=== PATIENT | female | born 1950 | race Caucasian/White ===

== ENCOUNTER 2018-07-10 14:06 | Outpatient (REF) | payer MEDICARE, SELFPAY ==
[2018-07-10 15:11] LABS: COMMENT (LAB VIEW ONLY) 20.25 mg/dL; Microalb ug/mg Crea 8.9 ug/mg Cr
== END 2018-07-10 14:26 ==
LOC: NCHCN 14:06
PROVIDERS: PCP Nurse Practitioner; Visit Provider Nurse Practitioner
DX: E11.9 Type 2 diabetes mellitus without complications (principal)
CPT/HCPCS: 82043; 82570

== ENCOUNTER → 2018-08-19 13:54 | Outpatient (BNVA) | payer MEDICARE, OTHER, SELFPAY | PROVIDERS: PCP Nurse Practitioner; Visit Provider Psychiatry & Neurology Neurology | DX: I63.311 Cerebral infarction due to thrombosis of right middle cerebral artery (principal); E34.8 Other specified endocrine disorders; I10 Essential (primary) hypertension; E11.9 Type 2 diabetes mellitus without complications; Z79.84 Long term (current) use of oral hypoglycemic drugs | CPT/HCPCS: 99214 ==

== ENCOUNTER 2019-01-15 10:39 | Outpatient (CLI) | payer MEDICARE, OTHER, SELFPAY ==
--- NOTE | 2019-01-15 10:32 | DI.RAD_ITS ---
SYMPTOMS/DIAGNOSIS: RT ANKLE PAIN RIGHT FOOT: Three views were obtained. There are osteophytes at the sites of attachment of the plantar fascia and Achilles tendon on the calcaneus. There are mild degenerative changes of the mid foot and forefoot joints. Most prominent degenerative changes are at the calcaneal cuboid joint and talonavicular joint.
== END 2019-01-15 10:59 ==
PROVIDERS: PCP Nurse Practitioner; Referring Provider Nurse Practitioner; Visit Provider Orthopaedic Surgery
DX: M25.571 Pain in right ankle and joints of right foot (principal); M19.071 Primary osteoarthritis, right ankle and foot; M76.821 Posterior tibial tendinitis, right leg
CPT/HCPCS: 99204; 99214; 73630; L1902

== ENCOUNTER 2021-04-17 10:53 | Outpatient (CLI) | payer MEDICARE, OTHER, SELFPAY ==
--- NOTE | 2021-04-17 09:40 | DI.RAD_ITS ---
Exam(s) XR HAND RT COMPLETE EXAM: XR HAND RT COMPLETE CLINICAL HISTORY: ACUTE RT RING FINGER SWELLING, LIMITED ROM, PAIN, M79.89-HAND SWELLING. TECHNIQUE: 2D digital imaging was performed. COMPARISON: No exams were available for comparison FINDINGS: There is no evidence of acute fracture nor dislocation. No erosions seen. However, there is signifi cant degenerative changes in the distal interphalangeal joints of all the fingers and advanced degene rative changes in the proximal interphalangeal joint of the 4th and 5th fingers with lesser amount of degenerative change in the PIP joints of the 2nd and 3rd fingers. There are moderate degenerative c hanges in the interphalangeal joint of the thumb. Advanced degenerative changes are noted at the 1st carpometacarpal joint PICC, this being the articulation between the thumb metacarpal and trapezium. IMPRESSION: DATA REPOSITORY: RADIATION DOSE DELIVERED:
== END 2021-04-17 11:13 ==
PROVIDERS: PCP Nurse Practitioner; Visit Provider Nurse Practitioner
DX: R22.31 Localized swelling, mass and lump, right upper limb (principal); M79.641 Pain in right hand
CPT/HCPCS: 73130

== ENCOUNTER 2021-11-27 11:53 | Outpatient (REF) | payer MEDICARE, OTHER, SELFPAY ==
[2021-11-27 15:33] LABS: COMMENT (LAB VIEW ONLY) 13.75 mg/dL; Microalb ug/mg Crea 24.7 ug/mg Cr
== END 2021-11-27 11:54 | disposition home or self-care (01) ==
LOC: NCHCN 11:53
PROVIDERS: PCP Nurse Practitioner; Visit Provider Nurse Practitioner Family
DX: E11.9 Type 2 diabetes mellitus without complications (principal)
CPT/HCPCS: 82043; 82570

== ENCOUNTER → 2024-05-12 14:58 | Outpatient (BNVA) | payer MEDICARE, OTHER, SELFPAY | PROVIDERS: PCP Family Medicine; Referring Provider Family Medicine; Visit Provider Podiatrist | DX: B35.1 Tinea unguium; I70.203 Unspecified atherosclerosis of native arteries of extremities, bilateral legs; E11.43 Type 2 diabetes mellitus with diabetic autonomic (poly)neuropathy | CPT/HCPCS: 11719; 99204 ==